=== PATIENT | male | born 1995 | race Caucasian/White ===

== ENCOUNTER 2022-01-08 20:25 | Emergency (ER) | payer OTHER ==
[~2022-01-08] VITALS: Ht 195.6 cm; Wt 104.3 kg
[2022-01-08 20:58] VITALS: BP_SYST 132
--- NOTE | 2022-01-08 21:03 | NUR ---
Pt from work with scrap on lower right leg. Controlled bleeding. Pt ambulatory, and following commands. VSS and will remain in waiting room until bed avaliable.
--- NOTE | 2022-01-08 22:53 | NUR ---
Patient to ER bed 08 to gown for evaluation. Side rails up. Report given to KRYSTLE WILLARD
--- NOTE | 2022-01-08 22:56 | NUR ---
PRESENTS TO THE ER C/O LACERATION TO RIGHT JURADO. INCIDENT OCCURRED APPROX 3 HRS AGO. HE REPORTS THAT HE SCRAPED HIS LEG ON A METAL OBJECT WHILE GETTING OFF OF THE TRUCK. BLEEDING CONTROLLED. HE STATES THAT HE CLEANED IT WITH WATER AND ETOH. DENIES DEFORMITY. REPORTS HE IS NOT UTD ON TETANUS.
[2022-01-08] MEDS ORDERED: DIPHTH,PERTUSS(ACELL),TET VAC 0.5 ML VIAL (Tdap) I.M. ONE (23:15)
--- NOTE | 2022-01-08 23:15 | NUR ---
WOUND TO RLE CLEANSED AND PAT DRY. STERISTRIPS AND NONSTICK TELFA APPLIED, WRAPPED IN KERLIX AND SECURED WITH PAPER TAPE. TOLERATED WELL.
--- NOTE | 2022-01-08 23:30 | NUR ---
Patient given written and verbal discharge instructions and verbalizes understanding. ER MD discussed with patient the results and treatment provided. Patient in stable condition. ID arm band removed. Patient educated on pain management and to follow up with PMD. Pain Scale []. Opportunity for questions provided and answered. Medication side effect fact sheet provided.
[2022-01-08 23:33] VITALS: BP_SYST 118
== END 2022-01-08 23:36 | disposition home or self-care (01) ==
LOC: SED 20:25
DX: S80.811A Abrasion, right lower leg, initial encounter (principal); Z79.899 Other long term (current) drug therapy; W22.8XXA Striking against or struck by other objects, initial encounter; Y93.89 Activity, other specified; Y92.89 Other specified places as the place of occurrence of the external cause; Y99.8 Other external cause status
CPT/HCPCS: 90715; 99283